=== PATIENT | male | born 1985 | race Two or more races ===

== ENCOUNTER → 2017-08-18 | Outpatient (REF) | payer BC | LOC: M SMT 13:34 | PROVIDERS: ATTEND Urology | DX: Z30.2 Encounter for sterilization (principal) ==

== ENCOUNTER → 2017-10-15 | Outpatient (REF) | payer BC ==
[2017-10-15 13:10] LABS: SEMEN APPEARANCE OPAQUE (OPAQUE); SEMEN VISCOSITY LIQUID (LIQUID)
[2017-10-15 13:11] LABS: IMMMOTILE SPERM CENTRIFUGED ABSENT (ABSENT); IMMOTILE SPERM ABSENT (ABSENT); MOTILE SPERM ABSENT (ABSENT); MOTILE SPERM CENTRIFUGED ABSENT (ABSENT); SEMEN pH 8.5 (7.0-8.0); WBC CONCENTRATION >1 M/ml (<=1 M/ml)
== END ==
LOC: M SMT 12:12
DX: Z30.2 Encounter for sterilization (principal)
CPT/HCPCS: 89321